=== PATIENT | female | born 2000 | race Caucasian/White ===

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

== ENCOUNTER 2022-09-02 20:33 | Emergency (ER) | payer OTHER, BC, SELFPAY ==
--- NOTE | 2022-09-02 20:50 | ED.GENADULT ---
HPI - General Adult General Chief complaint: Extremity Injury, Lower Stated complaint: Left Foot Injury Time Seen by Provider: 09/02/22 20:34 History of Present Illness HPI narrative: The patient is a 22-year-old woman had a horse accident on 08/29/2022, 5 days ago. She was writing orders and the worse suddenly stopped and she fell off the horse. The rear legs of course then struck her on the left lower leg in the calf medially. She was seen at [place] emergency room that night, x-rays of the leg and ankle were negative for fracture per her report. She has been using a soft lower leg brace since that time. The bruising and swelling has continued and so has the pain. She is concerned about her lower leg. She does have bruises elsewhere from the fall, right knee, left elbow, and shoulder. She has been able to ambulate following this accident but now the pain is worse and ambulation is becoming difficult. She has been taking Tylenol and NSAIDs [id number] for the discomfort. No significant past medical history. Related Data Home Medications Medication Instructions Recorded Confirmed fluoxetine 20 mg capsule 20 mg PO DAILY 06/17/20 09/02/22 Allergies Allergy/AdvReac Type Severity Reaction Status Date / Time amoxicillin Allergy Unknown C-DIFF Verified 12/10/20 18:41 clavulanic acid AdvReac Unknown c-diff Verified 12/10/20 18:41 [From Augmentin] Review of Systems Review of Systems: All systems reviewed & are unremarkable except as noted in HPI and below Constitutional: Constitutional: Denies chills, Denies excessive sweating, Denies fatigue, Denies fever(s), Denies headache(s) and Denies weakness Eyes: Eyes: Denies change in vision and Denies photophobia ENT: Denies dysphagia, Denies dizziness, Denies headache(s), Denies lip swelling, Denies nasal congestion, Denies sore throat and Denies tongue swelling Cardiovascular: Cardiovascular: Denies chest pain, Denies syncope, Denies rapid heart rate and Denies dyspnea Respiratory: Respiratory: Denies cough, Denies dyspnea and Denies wheezing Gastrointestinal: Gastrointestinal: Denies abdominal pain, Denies constipation, Denies dysphagia, Denies diarrhea, Denies nausea and Denies vomiting Genitourinary: Genitourinary: Denies hematuria, Denies urinary frequency, Denies dysuria and Denies urinary urgency Musculoskeletal: Musculoskeletal: Denies back pain, Denies myalgias, Reports arthralgias, Reports joint swelling and Denies numbness Comments: Pain and swelling in the left lower leg with bruising externally. Integumentary/Breasts: Skin/Breast: Denies pruritus, Denies erythema and Denies rash Comments: Bruising noted elsewhere, right knee, left elbow, shoulders Neurologic: Denies confusion, Denies dizziness, Denies syncope, Denies headache(s), Denies focal weakness, Denies numbness and Denies weakness Psychiatric: Psychiatric: Denies anxiety and Denies confusion Endocrine: Endocrine: Denies excessive sweating and Denies fatigue Hematologic/Lymphatic: Hematologic/Lymphatic: Denies easy bleeding and Denies easy bruising Allergic/Immunologic: Allergic/Immunologic: Denies lip swelling, Denies tongue swelling and Denies wheezing PMFSH Past Medical History Medical History Anxiety disorder Concussion Dizziness Surgical History Surgical History History of tonsillectomy Family History Family History Father No problems noted. Social History Social History Smoking status: Never smoker Alcohol intake: current Alcohol use details: Occasional Substance use: current Substance use type: marijuana Other substance usage details: Occasional Living arrangements: with family Gender identity (if verbalized by the patient): F
[2022-09-02] MEDS: HYDROcodone/acetaminophen (*CRX) 5-325 MG TABLET 1 TAB PO (21:01)
[2022-09-02] MEDS: CYCLOBENZAPRINE HCL 10 MG TABLET PO (21:02)
[2022-09-02 21:04] VITALS: BP 111/68; PULSE 89; RESP 18; TEMP 36.9; O2SAT 99
[2022-09-02 21:27] VITALS: BP 109/68; PULSE 82; RESP 18; TEMP 37.1; O2SAT 99
== END 2022-09-02 21:30 | disposition home or self-care (01) ==
LOC: CHSED 21:14
PROVIDERS: Emergency Provider Emergency Medicine; PCP Physician Assistant
DX: S80.12XD Contusion of left lower leg, subsequent encounter (principal); V80.010D Animal-rider injured by fall from or being thrown from horse in noncollision accident, subsequent encounter
CPT/HCPCS: 99283; A9270